=== PATIENT | female | born 1990 | race Two or more races ===

== ENCOUNTER 2019-08-30 13:11 | Emergency (ER) | payer OTHER ==
[~2019-08-30] VITALS: Ht 162.6 cm; Wt 68.0 kg
[2019-08-30 13:16] VITALS: BP 143/85
--- NOTE | 2019-08-30 13:28 | NUR ---
Karson herrmann in [facility] - 08/30/19 at 1329 by AZIZA SWAB DONE RIGOBERTO SENT TO [facility]
--- NOTE | 2019-08-30 13:29 | NUR ---
SWAB DONE AND SENT TO LAB
--- NOTE | 2019-08-30 13:35 | NUR ---
Patient discharged to home in stable condition. Written and verbal after care instructions given. Patient verbalizes understanding of instruction.
== END 2019-08-30 13:35 | disposition home or self-care (01) ==
LOC: ER 13:16
DX: Z11.59 Encounter for screening for other viral diseases (principal)
CPT/HCPCS: 99283; C9803; U0003

== ENCOUNTER 2019-09-07 13:04 | Emergency (ER) | payer OTHER ==
[~2019-09-07] VITALS: Ht 162.6 cm; Wt 68.0 kg
[2019-09-07 13:08] VITALS: BP 125/81
--- NOTE | 2019-09-07 13:33 | NUR ---
covid 19 swab collected and sent to lab
--- NOTE | 2019-09-07 13:34 | NUR ---
Patient discharged to home in stable condition. Written and verbal after care instructions given. Patient verbalizes understanding of instruction.
== END 2019-09-07 13:34 | disposition home or self-care (01) ==
LOC: ER 13:07
DX: Z03.818 Encounter for observation for suspected exposure to other biological agents ruled out (principal)
CPT/HCPCS: 99283; C9803; U0003

== ENCOUNTER 2019-09-15 14:45 | Emergency (ER) | payer OTHER ==
[~2019-09-15] VITALS: Ht 152.4 cm; Wt 59.0 kg
[2019-09-15 14:53] VITALS: BP 134/88
== END 2019-09-15 15:41 | disposition home or self-care (01) ==
LOC: ER 14:46
DX: Z11.59 Encounter for screening for other viral diseases (principal)
CPT/HCPCS: 99283; C9803; U0003

== ENCOUNTER 2019-09-23 10:44 | Emergency (ER) | payer OTHER ==
[~2019-09-23] VITALS: Ht 165.1 cm; Wt 68.0 kg
[2019-09-23 10:48] VITALS: BP 119/86
--- NOTE | 2019-09-23 11:04 | NUR ---
Patient discharged to home in stable condition. Written and verbal after care instructions given. Patient verbalizes understanding of instruction.
== END 2019-09-23 11:11 | disposition home or self-care (01) ==
LOC: ER 10:45
DX: Z20.828 Contact with and (suspected) exposure to other viral communicable diseases (principal)
CPT/HCPCS: 99283; C9803; U0003

== ENCOUNTER 2019-09-30 15:16 | Emergency (ER) | payer OTHER ==
[~2019-09-30] VITALS: Ht 165.1 cm; Wt 68.0 kg
[2019-09-30 15:16] VITALS: BP 118/66
--- NOTE | 2019-09-30 15:36 | NUR ---
COVID SWAB DONE AND SENT TO LAB
== END 2019-09-30 15:37 | disposition home or self-care (01) ==
LOC: ER 15:17
DX: Z20.828 Contact with and (suspected) exposure to other viral communicable diseases (principal)
CPT/HCPCS: 99283; C9803; U0003

== ENCOUNTER 2019-10-08 15:15 | Emergency (ER) | payer OTHER ==
[~2019-10-08] VITALS: Ht 165.1 cm; Wt 68.0 kg
[2019-10-08 15:25] VITALS: BP 110/67
== END 2019-10-08 17:00 | disposition home or self-care (01) ==
LOC: ER 15:17
DX: Z20.828 Contact with and (suspected) exposure to other viral communicable diseases (principal)
CPT/HCPCS: 99283; C9803; U0003

== ENCOUNTER 2019-10-14 14:33 | Emergency (ER) | payer OTHER ==
[~2019-10-14] VITALS: Ht 165.1 cm; Wt 68.0 kg
[2019-10-14 14:36] VITALS: BP 122/68
--- NOTE | 2019-10-14 15:10 | NUR ---
COVID SPECIMEN OBTAINED AND SENT TO LAB.
--- NOTE | 2019-10-14 15:12 | NUR ---
Patient discharged to home in stable condition. Written and verbal after care instructions given. Patient verbalizes understanding of instruction.
--- NOTE | 2019-10-15 12:57 | NUR ---
Negative COVID PCR results
== END 2019-10-14 15:12 | disposition home or self-care (01) ==
LOC: ER 14:34
DX: Z20.828 Contact with and (suspected) exposure to other viral communicable diseases (principal)
CPT/HCPCS: 99283; C9803; U0003

== ENCOUNTER 2019-10-21 11:33 | Emergency (ER) | payer OTHER ==
[~2019-10-21] VITALS: Ht 165.1 cm; Wt 68.0 kg
[2019-10-21 11:39] VITALS: BP 113/70
--- NOTE | 2019-10-21 12:29 | NUR ---
covid swab sent, did not wait for discharge paperworks. Verbal Discharge instructions given and patient verbalized understanding.
== END 2019-10-21 12:30 | disposition home or self-care (01) ==
LOC: ER 11:33
DX: Z20.828 Contact with and (suspected) exposure to other viral communicable diseases (principal)
CPT/HCPCS: 99283; C9803; U0003

== ENCOUNTER 2019-11-12 08:17 | Emergency (ER) | payer OTHER ==
[~2019-11-12] VITALS: Ht 165.1 cm; Wt 68.0 kg
[2019-11-12 08:23] VITALS: BP 110/73
--- NOTE | 2019-11-12 08:48 | NUR ---
Patient discharged to home in stable condition. Written and verbal after care instructions given. Patient verbalizes understanding of instruction.
== END 2019-11-12 08:48 | disposition home or self-care (01) ==
LOC: ER 08:18
DX: Z20.828 Contact with and (suspected) exposure to other viral communicable diseases (principal)
CPT/HCPCS: 99283; C9803; U0003

== ENCOUNTER 2019-11-19 08:23 | Emergency (ER) | payer OTHER ==
[~2019-11-19] VITALS: Ht 165.1 cm; Wt 60.8 kg
[2019-11-19 08:31] VITALS: BP 134/80
--- NOTE | 2019-11-20 01:47 | NUR ---
COVID TEST NEGATIVE PER LAB.
== END 2019-11-19 09:19 | disposition home or self-care (01) ==
LOC: ER 08:24
DX: Z20.828 Contact with and (suspected) exposure to other viral communicable diseases (principal)
CPT/HCPCS: 99283; C9803; U0003

== ENCOUNTER 2019-11-26 08:29 | Emergency (ER) | payer OTHER ==
[~2019-11-26] VITALS: Ht 165.1 cm; Wt 68.0 kg
[2019-11-26 08:37] VITALS: BP 110/64
--- NOTE | 2019-11-26 08:40 | NUR ---
SEEN AND EVALUATED BY .
== END 2019-11-26 09:08 | disposition home or self-care (01) ==
LOC: ER 08:31
DX: Z20.828 Contact with and (suspected) exposure to other viral communicable diseases (principal)
CPT/HCPCS: 99283; C9803; U0003

== ENCOUNTER 2019-12-02 09:41 | Emergency (ER) | payer OTHER ==
[~2019-12-02] VITALS: Ht 165.1 cm; Wt 68.0 kg
[2019-12-02 10:00] VITALS: BP 122/69
== END 2019-12-02 10:32 | disposition home or self-care (01) ==
LOC: ER 09:44
DX: Z20.828 Contact with and (suspected) exposure to other viral communicable diseases (principal)
CPT/HCPCS: 99283; C9803; U0003

== ENCOUNTER 2019-12-10 07:24 | Emergency (ER) | payer OTHER ==
[~2019-12-10] VITALS: Ht 165.1 cm; Wt 68.0 kg
[2019-12-10 07:28] VITALS: BP 125/82
== END 2019-12-10 07:53 | disposition home or self-care (01) ==
LOC: ER 07:26
DX: Z20.828 Contact with and (suspected) exposure to other viral communicable diseases (principal)
CPT/HCPCS: 99283; C9803; U0003

== ENCOUNTER 2019-12-16 09:08 | Emergency (ER) | payer OTHER ==
[~2019-12-16] VITALS: Ht 165.1 cm; Wt 71.7 kg
[2019-12-16 09:18] VITALS: BP 120/75
--- NOTE | 2019-12-16 09:26 | NUR ---
Patient discharged to home in stable condition. Written and verbal after care instructions given. Patient verbalizes understanding of instruction.
== END 2019-12-16 09:27 | disposition home or self-care (01) ==
LOC: ER 09:10
DX: Z20.828 Contact with and (suspected) exposure to other viral communicable diseases (principal)
CPT/HCPCS: 99283; C9803; U0003

== ENCOUNTER 2019-12-24 08:18 | Emergency (ER) | payer OTHER ==
[~2019-12-24] VITALS: Ht 165.1 cm; Wt 68.0 kg
[2019-12-24 08:20] VITALS: BP 121/75
== END 2019-12-24 08:49 | disposition home or self-care (01) ==
LOC: ER 08:21
DX: Z20.828 Contact with and (suspected) exposure to other viral communicable diseases (principal)
CPT/HCPCS: 99283; C9803; U0003

== ENCOUNTER 2019-12-29 08:27 | Emergency (ER) | payer OTHER ==
[~2019-12-29] VITALS: Ht 165.1 cm; Wt 68.0 kg
[2019-12-29 08:27] VITALS: BP 104/80
--- NOTE | 2019-12-29 09:01 | NUR ---
COVID SWAB SENT. Patient discharged to home in stable condition. Written and verbal after care instructions given. Patient verbalizes understanding of instruction.
== END 2019-12-29 09:02 | disposition home or self-care (01) ==
LOC: ER 08:30
DX: Z20.828 Contact with and (suspected) exposure to other viral communicable diseases (principal)
CPT/HCPCS: 99283; C9803; U0003

== ENCOUNTER 2020-01-03 08:31 | Emergency (ER) | payer OTHER ==
[~2020-01-03] VITALS: Ht 165.1 cm; Wt 68.0 kg
[2020-01-03 08:38] VITALS: BP 118/75
--- NOTE | 2020-01-03 09:00 | NUR ---
covid swab collected and sent to lab
--- NOTE | 2020-01-03 09:05 | NUR ---
Patient discharged to home in stable condition. Written and verbal after care instructions given. Patient verbalizes understanding of instruction.
== END 2020-01-03 09:06 | disposition home or self-care (01) ==
LOC: ER 08:34
DX: Z20.828 Contact with and (suspected) exposure to other viral communicable diseases (principal)
CPT/HCPCS: 99283; C9803; U0003

== ENCOUNTER 2020-01-14 08:46 | Emergency (ER) | payer OTHER ==
[~2020-01-14] VITALS: Ht 180.3 cm; Wt 72.6 kg
[2020-01-14 09:08] VITALS: BP 134/77
--- NOTE | 2020-01-14 09:08 | NUR ---
Patient discharged to home in stable condition. Written and verbal after care instructions given. Patient verbalizes understanding of instruction.
== END 2020-01-14 09:28 | disposition home or self-care (01) ==
LOC: ER 08:46
DX: Z20.828 Contact with and (suspected) exposure to other viral communicable diseases (principal)
CPT/HCPCS: 87426; 99283; C9803

== ENCOUNTER 2020-01-21 08:16 | Emergency (ER) | payer OTHER ==
[~2020-01-21] VITALS: Ht 165.1 cm; Wt 68.0 kg
[2020-01-21 08:35] VITALS: BP 103/66
--- NOTE | 2020-01-21 09:03 | NUR ---
Patient discharged to home in stable condition. Written and verbal after care instructions given. Patient verbalizes understanding of instruction.
== END 2020-01-21 09:04 | disposition home or self-care (01) ==
LOC: ER 08:16
DX: Z20.828 Contact with and (suspected) exposure to other viral communicable diseases (principal)
CPT/HCPCS: 99283; C9803; U0003

== ENCOUNTER 2020-01-26 08:32 | Emergency (ER) | payer OTHER ==
[~2020-01-26] VITALS: Ht 162.6 cm; Wt 55.8 kg
[2020-01-26 08:36] VITALS: BP 127/88
== END 2020-01-26 09:36 | disposition home or self-care (01) ==
LOC: ER 08:34
DX: Z20.828 Contact with and (suspected) exposure to other viral communicable diseases (principal)
CPT/HCPCS: 99283; C9803; U0003

== ENCOUNTER 2020-02-03 09:33 | Emergency (ER) | payer OTHER ==
[~2020-02-03] VITALS: Ht 162.6 cm; Wt 55.8 kg
[2020-02-03 09:40] VITALS: BP 122/74
== END 2020-02-03 10:22 | disposition home or self-care (01) ==
LOC: ER 09:34
DX: Z20.828 Contact with and (suspected) exposure to other viral communicable diseases (principal)
CPT/HCPCS: 99283; C9803; U0003

== ENCOUNTER 2020-02-10 08:36 | Emergency (ER) | payer OTHER ==
[~2020-02-10] VITALS: Ht 165.1 cm; Wt 68.0 kg
[2020-02-10 08:40] VITALS: BP 128/74
== END 2020-02-10 10:10 | disposition home or self-care (01) ==
LOC: ER 08:38
DX: Z20.828 Contact with and (suspected) exposure to other viral communicable diseases (principal)
CPT/HCPCS: 99283; C9803; U0003

== ENCOUNTER 2020-02-17 10:15 | Emergency (ER) | payer OTHER ==
[~2020-02-17] VITALS: Ht 165.1 cm; Wt 68.0 kg
[2020-02-17 10:30] VITALS: BP 122/65
== END 2020-02-17 10:47 | disposition home or self-care (01) ==
LOC: ER 10:16
DX: Z20.822 Contact with and (suspected) exposure to COVID-19 (principal)
CPT/HCPCS: 99283; C9803; U0003

== ENCOUNTER 2020-02-25 08:28 | Emergency (ER) | payer OTHER ==
[~2020-02-25] VITALS: Ht 177.8 cm; Wt 70.8 kg
[2020-02-25 08:36] VITALS: BP 134/77
== END 2020-02-25 08:38 | disposition home or self-care (01) ==
LOC: ER 08:30
DX: Z20.822 Contact with and (suspected) exposure to COVID-19 (principal)
CPT/HCPCS: 99283; C9803; U0003

== ENCOUNTER 2020-03-03 08:40 | Emergency (ER) | payer OTHER ==
[~2020-03-03] VITALS: Ht 165.1 cm; Wt 68.0 kg
[2020-03-03 08:52] VITALS: BP 113/68
== END 2020-03-03 09:06 | disposition home or self-care (01) ==
LOC: ER 08:41
DX: Z20.822 Contact with and (suspected) exposure to COVID-19 (principal)
CPT/HCPCS: 99283; C9803; U0003

== ENCOUNTER 2020-03-10 08:47 | Emergency (ER) | payer OTHER ==
[~2020-03-10] VITALS: Ht 165.1 cm; Wt 68.0 kg
[2020-03-10 08:51] VITALS: BP 105/70
== END 2020-03-10 09:26 | disposition home or self-care (01) ==
LOC: ER 08:48
DX: Z20.822 Contact with and (suspected) exposure to COVID-19 (principal)
CPT/HCPCS: 99283; C9803; U0003

== ENCOUNTER 2020-03-17 08:40 | Emergency (ER) | payer OTHER ==
[~2020-03-17] VITALS: Ht 165.1 cm; Wt 68.0 kg
[2020-03-17 08:44] VITALS: BP 113/74
--- NOTE | 2020-03-17 09:29 | NUR ---
Patient discharged to home in stable condition. Written and verbal after care instructions given. Patient verbalizes understanding of instruction.
== END 2020-03-17 09:30 | disposition home or self-care (01) ==
LOC: ER 08:43
DX: Z20.822 Contact with and (suspected) exposure to COVID-19 (principal)
CPT/HCPCS: 99283; C9803; U0003

== ENCOUNTER → 2020-03-24 | Emergency (ER) | payer OTHER ==
[~2020-03-24] VITALS: Ht 165.1 cm; Wt 68.0 kg
[2020-03-24 08:38] VITALS: BP 122/77
--- NOTE | 2020-03-24 08:50 | NUR ---
COVID SWAB TEST COLLECTED AND SENT TO THE LAB.
--- NOTE | 2020-03-24 08:54 | NUR ---
Patient discharged in stable condition. Written and verbal after care instructions given. Patient verbalizes understanding of instruction.
== END | disposition home or self-care (01) ==
LOC: ER 08:34
DX: Z20.822 Contact with and (suspected) exposure to COVID-19 (principal)
CPT/HCPCS: 99283; C9803; U0003

== ENCOUNTER 2020-03-31 09:17 | Emergency (ER) | payer OTHER ==
[~2020-03-31] VITALS: Ht 165.1 cm; Wt 68.0 kg
[2020-03-31 09:20] VITALS: BP 122/74
== END 2020-03-31 09:42 | disposition home or self-care (01) ==
LOC: ER 09:17
DX: Z20.822 Contact with and (suspected) exposure to COVID-19 (principal)
CPT/HCPCS: 99283; C9803; U0003

== ENCOUNTER 2020-04-07 09:47 | Emergency (ER) | payer OTHER ==
[~2020-04-07] VITALS: Ht 162.6 cm; Wt 68.0 kg
[2020-04-07 09:51] VITALS: BP 132/75
--- NOTE | 2020-04-07 10:31 | NUR ---
EXTENSION 3752
== END 2020-04-07 11:27 | disposition home or self-care (01) ==
LOC: ER 09:53
DX: Z20.822 Contact with and (suspected) exposure to COVID-19 (principal)
CPT/HCPCS: 99283; C9803; U0003

== ENCOUNTER → 2020-04-14 | Emergency (ER) | payer OTHER ==
[~2020-04-14] VITALS: Ht 165.1 cm; Wt 70.3 kg
[2020-04-14 09:19] VITALS: BP 106/65
--- NOTE | 2020-04-14 09:38 | NUR ---
Covid swab done and sent to the to lab.
--- NOTE | 2020-04-14 09:44 | NUR ---
Patient discharged from ER in stable condition. Written and verbal after care instructions given. Patient verbalizes understanding of instruction.
== END | disposition home or self-care (01) ==
LOC: ER 09:16
DX: Z20.822 Contact with and (suspected) exposure to COVID-19 (principal)
CPT/HCPCS: 99283; C9803; U0003

== ENCOUNTER → 2020-04-21 | Emergency (ER) | payer OTHER ==
[~2020-04-21] VITALS: Ht 165.1 cm; Wt 70.3 kg
[2020-04-21 09:27] VITALS: BP 115/74
--- NOTE | 2020-04-21 10:02 | NUR ---
COVID SWAB SENT.
--- NOTE | 2020-04-21 10:03 | NUR ---
UNABLE TO DEPART DUE TO MEDITECH ERROR. Patient discharged to home in stable condition. Written and verbal after care instructions given. Patient verbalizes understanding of instruction.
== END | disposition home or self-care (01) ==
LOC: ER 11:00
DX: Z20.822 Contact with and (suspected) exposure to COVID-19 (principal)
CPT/HCPCS: 99283; C9803; U0003

== ENCOUNTER 2020-05-12 13:52 | Emergency (ER) | payer OTHER ==
[~2020-05-12] VITALS: Ht 165.1 cm; Wt 70.3 kg
[2020-05-12 13:56] VITALS: BP 119/70
--- NOTE | 2020-05-12 14:10 | NUR ---
Patient discharged to home in stable condition. Written and verbal after care instructions given. Patient verbalizes understanding of instruction.COVID SWAB SENT.
== END 2020-05-12 14:11 | disposition home or self-care (01) ==
LOC: ER 13:56
DX: Z20.822 Contact with and (suspected) exposure to COVID-19 (principal)
CPT/HCPCS: 99283; C9803; U0003

== ENCOUNTER 2021-05-24 12:22 | Outpatient (CLI) | payer BC | END 2021-05-24 23:59 | disposition home or self-care (01) | LOC: RAD 12:22 | PROVIDERS: ATTEND Family Medicine | DX: Z76.89 Persons encountering health services in other specified circumstances (principal) | CPT/HCPCS: 73610-TC ==

== ENCOUNTER 2021-08-17 11:50 | Outpatient (CLI) | payer BC | END 2021-08-17 23:59 | disposition home or self-care (01) | LOC: RAD 11:50 | PROVIDERS: ATTEND Family Medicine | DX: G56.03 Carpal tunnel syndrome, bilateral upper limbs (principal) | CPT/HCPCS: 73110 ==

== ENCOUNTER 2022-01-07 12:02 | Outpatient (CLI) | payer BC | END 2022-01-07 23:59 | disposition home or self-care (01) | LOC: MRI 12:02 | PROVIDERS: ATTEND Family Medicine | DX: M79.671 Pain in right foot (principal) | CPT/HCPCS: 73718-TC ==

== ENCOUNTER 2022-06-03 09:19 | Outpatient (CLI) | payer BC ==
[~2022-06-03 09:19] MED LIST: HYDR28.32 TP
== END 2022-06-03 23:59 | disposition home or self-care (01) ==
LOC: MRI 09:19
PROVIDERS: ATTEND Psychiatry & Neurology Neurology
DX: M54.9 Dorsalgia, unspecified (principal)
CPT/HCPCS: 36415; 82565-TC; 84520-TC